=== PATIENT | male | born 1990 | race American Indian/Alaskan Native ===

== ENCOUNTER 2017-08-16 12:41 | Emergency (ER) | payer SELFPAY ==
[~2017-08-16] VITALS: Ht 175.3 cm; Wt 66.7 kg
[~2017-08-16 12:41] MED LIST: GLIPIZIDE5 MG PO; LEVEMIR100 UNIT/1 SQ; LIPITOR20 MG PO; LISINOPRIL2.5 MG PO; METFORMIN HCL500 MG PO; NOVOLOG MI100 UNIT/1 SQ
--- OUTSIDE RECORDS SUMMARY | 2017-08-16 12:44 | XMS REPORT ---
Author Author [facility] Address Unknown Phone Unavailable Care Team Providers Care Welt Beater Name Role Phone [facility] Unavailable Unavailable Problems This patient has no known problems. Allergies, Adverse Reactions, Alerts This patient has no known allergies or adverse reactions. Medications This patient has no known medications. Results Test Description Test Time Test Comments Text Results Atomic Results Result Comments ABDOMEN-1VIEW (KUB) [place] [address] Patient Name: DAWSON LINDSEY MR #: [id number] : 1990 Age/Sex: 26/M Req #: [id number] Adm Physician: BIA FOUNATIN MD Ordered by: OMA ARROYO MD Report #: [id number] Location: ICU Room/Bed: ICU [facility] Procedure: [id number] DX/ABDOMEN-1VIEW (KUB) Exam Date: 12/31/16 Exam Time: 1700 REPORT STATUS: Signed PROCEDURE: X-RAY ABDOMEN - KUB COMPARISON: None. INDICATIONS: VOMITING FINDINGS: Nonobstructed bowel gas pattern. No air-filled, dilated loops of bowel. No dilated, air-filled loops of bowel. No abnormal calcifications. No acute bony abnormalities. No lytic or blastic lesions. CONCLUSION: Nonobstructed bowel gas pattern. Bell Rocha M.D. Dictated by: Bell Rocha M.D. on 12/31/2016 at 18:13 Electronically approved by: Bell Rocha M.D. on 12/31/2016 at 18:13 Dictated By: BELL ROCHA MD 12 Transcribed By: JOSEF on 12/31/161812 COPY TO: OMA ARROYO MD CT BRAIN WO [place] [address] Patient Name: DAWSON LINDSEY MR #: [id number] : 1990 Age/Sex: 26/M Req #: [id number] Adm Physician: Ordered by: JUAN LÓPEZ MD Report #: [id number] Location: ER Room/Bed: Procedure: [id number] CT/CT BRAIN WO Exam Date: 12/30/16 Exam Time: 2113 REPORT STATUS: Signed EXAMINATION: Head CT without contrast. HISTORY:Hallucinations, alcohol withdrawal. COMPARISON:None. TECHNIQUE: Multidetector axial images were obtained from the foramen magnum to the vertex without contrast. The images were reconstructed using brain and bone algorithms. Thin section brain images were reformatted into coronal and sagittal planes. Intravenous contrast: None IMAGE QUALITY: Acceptable. FINDINGS: Skull/scalp: No abnormality. Parenchyma: No abnormal density. No acute hemorrhage, mass or acute major vascular territorial infarct. Arteries: No density suggestive of thrombosis. Dural sinuses: No abnormal density suggestive of thrombosis. Ventricles: No hydrocephalus or displacement. Extra-axial spaces: No abnormal density. Brain volume: Normal for age. Craniocervical junction: No mass, Chiari malformation, or basilar invagination. Sella: No mass. Paranasal/mastoid sinuses: No abnormality. Incidental finding: Chronic fracture deformity in the medial wall of left orbit. IMPRESSION: No intracranial abnormality. Signed by: Dr. Christy Fletcher M.D. on 12/30/2016 9:55 PM Dictated By: CHRISTY FLETCHER MD 54 Transcribed By: GRETA on 12/30/162154 COPY TO: JUAN LÓPEZ MD CHEST 2 VIEWS [place] [address] Patient Name: DAWSON LINDSEY MR #: [id number] : 1990 Age/Sex: 26/M Req #: [id number] Adm Physician: Ordered by: JUAN LÓPEZ MD Report #: [id number] Location: ER Room/Bed: Procedure: [id number] DX/CHEST 2 VIEWS Exam Date: 12/30/16 Exam Time: 2117 REPORT STATUS: Signed EXAMINATION: CHEST 2 VIEWS INDICATION: Diabetic ketoacidosis COMPARISON: None FINDINGS: TUBES and LINES: None. LUNGS: Lungs are well inflated. Lungs are clear. There is no evidence of pneumonia or pulmonary edema. PLEURA: No pleural effusion or pneumothorax. HEART AND MEDIASTINUM: The cardiomediastinal silhouette is unremarkable. BONES AND SOFT TISSUES: No acute osseous lesion. Heterotopic calcification along the coracoclavicular ligament compatible with prior trauma to the left shoulder/clavicle. Soft tissues are unremarkable. UPPER ABDOMEN: No free air under the diaphragm. IMPRESSION: No acute thoracic abnormality. Signed by: Dr. Carlos Franco M.D. on 12/30/2016 10:06 PM Dictated By: CARLOS OSBORNE MD 05 Transcribed By: GRETA on 12/30/162205 COPY TO: JUAN LÓPEZ MD
[2017-08-16] MEDS ORDERED: SODIUM CHLORIDE 0.9% 1000ML 1,000 ML IV STA (13:51)
== END 2017-08-16 15:07 | disposition left against medical advice (07) ==
LOC: ER 12:41
DX: R73.9 Hyperglycemia, unspecified (principal)

== ENCOUNTER 2017-10-29 13:46 | Emergency (ER) | payer OTHER ==
[~2017-10-29] VITALS: Ht 175.3 cm; Wt 66.7 kg
[2017-10-29] MEDS ORDERED: SODIUM CHLORIDE 0.9% 1000ML 1,000 ML IV STA (14:10)
[2017-10-29] MEDS ORDERED: LORAZEPAM INJ 2 MG/ML VIAL IV ONE (14:15)
[2017-10-29 14:39] LABS: BASOPHILS % 0.5 % (0.0-1.0); EOSINOPHILS % 0.5 % (0.0-6.0); HEMATOCRIT 36.3 % (38.2-49.6); HEMOGLOBIN 12.8 g/dL (14.0-18.0); LYMPHOCYTES % 25.9 % (18.0-39.1); MEAN CORPUSCULAR HEMOGLOBIN 31.6 pg (28-32); MEAN CORPUSCULAR HGB CONC 35.3 g/dL (31-35); MEAN CORPUSCULAR VOLUME 89.6 fL (81-99); MONOCYTES # (AUTO) 0.4 (0.2-0.8); MONOCYTES % 11.9 % (4.4-11.3); NEUTROPHILS # (AUTO) 2.3 (2.1-6.9); NEUTROPHILS % 60.9 % (38.7-80.0); RED BLOOD COUNT 4.05 x10e6/uL (4.3-5.7); RED CELL DISTRIBUTION WIDTH 12.4 % (11.7-14.4)
[2017-10-29 14:41] LABS: PLATELET COUNT 95 x10e3/uL (140-360)
[2017-10-29] MEDS ORDERED: ONDANSETRON HCL INJ 2 MG/ML VIAL IV STA (14:42)
[2017-10-29 14:55] LABS: ALANINE AMINOTRANSFERASE 135 IU/L (0-55); ALBUMIN/GLOBULIN RATIO 1.2 (0.8-2.0); ALKALINE PHOSPHATASE 158 IU/L (40-150); ANION GAP 23.1 mmol/L (8-16); BLOOD UREA NITROGEN 7 mg/dL (7-26); BUN/CREATININE RATIO 10 (6-25); CALCIUM 8.7 mg/dL (8.4-10.2); CARBON DIOXIDE 20 mmol/L (22-29); CHLORIDE 94 mmol/L (98-107); CREATININE, SERUM 0.73 mg/dL (0.72-1.25); EST GLOMERULAR FILTRATION RATE > 60 ML/MIN (60-); GLUCOSE 341 mg/dL (74-118); POTASSIUM 4.1 mmol/L (3.5-5.1); SODIUM 133 mmol/L (136-145)
--- NOTE | 2017-10-29 15:42 | Diagnostic Imaging Report ---
History:Twitching, seizure Comparison studies: None Technique: Axial images were obtained from the skull base to the vertex. Coronal and sagittal reconstructions obtained from the axial data. Findings: Scalp/skull: No abnormalities. No acute fractures, blastic or lytic lesions. 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 No fluid collections. Brain sulci: Appropriate for age. Ventricles: Normal in size and configuration. No hydrocephalus. Parenchyma: No abnormal densities. No masses, hemorrhage, acute or chronic cortical vascular insults. Sellar/suprasellar region: No abnormalities Craniocervical junction: Patent foramen magnum. No Chiari one malformation. IMPRESSION: No intracranial abnormalities . Signed by: DR Be Griffin M.D. on 10/29/2017 3:38 PM
[2017-10-29 15:48] LABS: CLARITY,URINE CLEAR (CLEAR); COLOR,URINE YELLOW (YELLOW); LEUKOCYTE ESTERASE ,URINE NEGATIVE (NEGATIVE); NITRITE,URINE NEGATIVE (NEGATIVE); PROTEIN,URINE DIPSTICK 2+ (NEGATIVE)
[2017-10-29 15:49] LABS: AMPHETAMINES SCREEN,URINE NEGATIVE (NEGATIVE); BENZODIAZEPINES SCREEN,URINE NEGATIVE (NEGATIVE); BILIRUBIN,URINE NEGATIVE (NEGATIVE); KETONES,URINE 1+ (NEGATIVE); PHENCYCLIDINE SCREEN,URINE NEGATIVE (NEGATIVE); URINE UROBILINOGEN 0.2 mg/dL (0.2 - 1)
[2017-10-29 15:56] LABS: MUCUS,URINE FEW (RARE); RBC,URINE 0-5 /HPF (0-5); WBC,URINE (MAN) 0-5 /HPF (0-5)
[2017-10-29] MEDS ORDERED: SODIUM CHLORIDE 0.9% 1000ML 1,000 ML IV SCH (16:45)
[2017-10-29] MEDS ORDERED: INSULIN REGULAR, HUMAN 100 UNIT/1 ML 3ML VIAL SQ ONE (16:45)
== END 2017-10-29 20:54 | disposition home or self-care (01) ==
LOC: ER 13:46
DX: G40.909 Epilepsy, unspecified, not intractable, without status epilepticus (principal); E11.9 Type 2 diabetes mellitus without complications
CPT/HCPCS: 36415; 70450; 80053; 80307; 80320; 81001; 82948; 85025; 99284; J2060; J7030